=== PATIENT | male | born 1980 | race Caucasian/White ===

== ENCOUNTER 2016-10-20 18:17 | Emergency (ER) | payer MEDICAID ==
[~2016-10-20] VITALS: Ht 165.1 cm; Wt 91.0 kg
[~2016-10-20 18:17] MED LIST: HYDR-3720 PO; IBUP800T25 PO
[2016-10-20 18:18] VITALS: Ht 165.1 cm; Wt 91.0 kg
[2016-10-20] MEDS ORDERED: IBUPROFEN 800 MG TAB PO ONE (19:00)
--- NOTE | 2016-10-20 20:00 | RADRPT ---
PROCEDURE: XR Right Hand CLINICAL INDICATION: Pain in thumb TECHNIQUE: PA, oblique, and lateral radiographs were submitted. COMPARISON: None FINDINGS: Osseous structures: appear well mineralized and intact with no fracture or destructive process iden tified. Joint spaces: It mild degenerative changes seen about the interphalangeal joint of the right thumb. The remaining joint spaces appear normal. Soft tissues: appear unremarkable. IMPRESSION: 1. Mild degenerative change seen about the interphalangeal joint of the right thumb. 2. Otherwise, unremarkable right hand series. Physician Kenny Date Time Electronically viewed and signed by Ayla Machado Physician on 10/20/2016 19:59 /
--- NOTE | 2016-10-20 20:09 | ERD ---
ER Documentation Chief Complaint Date/Time DATE: 10/20/16 TIME: 20:07 Chief Complaint Complains of left hand pain HPI This is a 36-year-old male presents to the emergency room for evaluation of nontraumatic right hand pain. The patient states that he has had hand pain for 3 months and came to the emergency room today for evaluation. He denies numbness or tingling in the right upper extremity, denies any fevers associated with this and denies any swelling. He came to the ER for evaluation of this chronic right hand pain. ROS All systems reviewed and are negative except as per history of present illness. Medications Home Meds Active Scripts Hydrocodone Bit-Acetaminophen* ([place]*) 7.5-325 Tablet, 2 TAB PO Q4H Y for PAIN , #20 TAB Prov:ZAY ALLENSTRAMIROS A. DO 04/06/15 Ibuprofen* (Motrin*) 800 Mg Tab, 800 MG PO Q6H Y for PAIN AND OR ELEVATED TEMP, #30 TAB Prov:ZAY ALLENSTRAMIROS A. DO 04/06/15 Allergies Allergies: Coded Allergies: No Known Allergy (Unverified , 04/06/15) PMhx/Soc Medical and Surgical Hx: pt denies Medical Hx, pt denies Surgical Hx Hx Alcohol Use: No Hx Substance Use: No Hx Tobacco Use: Yes (2CIG/DAY) Smoking Status: Light tobacco smoker Physical Exam Vitals Vital Signs Date Time Temp Pulse Resp B/P Pulse Ox O2 Delivery O2 Flow Rate FiO2 10/20/16 18:18 98.3 75 20 133/80 97 Physical Exam Const: No acute distress Head: Atraumatic Eyes: Normal Conjunctiva ENT: Normal External Ears, Nose and Mouth. Neck: Full range of motion..~ No meningismus. Resp: Clear to auscultation bilaterally Cardio: Regular rate and rhythm, no murmurs Abd: Soft, non tender, non distended. Normal bowel sounds Skin: No petechiae or rashes Back: No midline or flank tenderness Ext: No cyanosis, or edema, no gross abnormalities Neur: Awake and alert Psych: Normal Mood and Affect Results 24 hrs Current Medications Medications (Trade) Dose Ordered Sig/[place] Route PRN Reason Start Time Stop Time Status Last Admin Dose Admin Ibuprofen (Motrin) 800 mg ONCE ONCE PO 10/20/16 19:00 10/20/16 19:01 DC 10/20/16 19:06 Procedures/[facility] X-ray Hand 3V interpreted by me: Scaphoid: [Normal] Bones: [No fracture] Joints: [No dislocation] Foreign body: [None] Splint Assessment: Neurovascularly intact post splint placement with good fit. A right Velcro wrist splint was applied by the tech under my direct supervision. After splint application, the patient was appreciated to have a normal distal neurovascular examination. This 36-year-old male presents to the ER for evaluation of atraumatic right hand pain. When I evaluated him he had no gross abnormalities on my examination. X-ray does not reveal any fracture. He will be placed in a right wrist splint and will be discharged home with a prescription for Motrin at this time with instructions to follow-up with his primary care physician. Departure Diagnosis: Primary Impression: Right hand pain Condition: Stable JUVENAL DRISCOLL DO Oct 20, 2016 20:09
[2016-10-20] MEDS ORDERED: IBUP800T25 PO (20:10)
[2016-10-20 20:20] VITALS: BP 122/77; PULSE 65; RESP 18; TEMP 98.3
== END 2016-10-20 20:25 | disposition home or self-care (01) ==
LOC: FTE 18:17
DX: M79.641 Pain in right hand (principal); F17.210 Nicotine dependence, cigarettes, uncomplicated
CPT/HCPCS: 29125; 73130; Z7502; Z7610

== ENCOUNTER 2018-05-07 15:26 | Emergency (ER) | payer MEDICAID ==
[~2018-05-07] VITALS: Wt 92.4 kg
[~2018-05-07 15:26] MED LIST changes: -IBUP800T25 PO; +IBUP800T48 PO
[2018-05-07 15:32] VITALS: BP 136/82; PULSE 69; RESP 22
[2018-05-07] MEDS ORDERED: IBUP-1542 PO (16:36)
--- NOTE | 2018-05-07 16:41 | ERD ---
ER Documentation Chief Complaint Chief Complaint L thumb w pain, swelling x1mo. limited ROM. +sensation. HPI 37-year-old male presents with left thumb pain and swelling for last month. Den ies any history of trauma. Denies any inciting events. He does use his hands for work. ROS All systems reviewed and are negative except as per history of present illness. Medications Home Meds Active Scripts Ibuprofen* (Motrin*) 600 Mg Tab, 600 MG PO Q6, #20 TAB Prov:OBDULIO FORD MD 05/07/18 Ibuprofen* (Motrin*) 800 Mg Tab, 800 MG PO Q6H PRN for PAIN AND OR ELEVATED TEMP, #30 TAB Prov:JUVENAL DRISCOLL DO 10/20/16 Hydrocodone Bit-Acetaminophen* ([place]*) 7.5-325 Tablet, 2 TAB PO Q4H PRN for PAIN, #20 TAB Prov:LEKKOS,APOSTOLOS A. DO 04/06/15 Ibuprofen* (Motrin*) 800 Mg Tab, 800 MG PO Q6H PRN for PAIN AND OR ELEVATED TEMP, #30 TAB Prov:LEKKOS,APOSTOLOS A. DO 04/06/15 Allergies Allergies: Coded Allergies: No Known Allergy (Unverified , 04/06/15) PMhx/Soc Medical and Surgical Hx: pt denies Medical Hx, pt denies Surgical Hx Hx Alcohol Use: No Hx Substance Use: No Hx Tobacco Use: Yes (2CIG/DAY) Smoking Status: Current every day smoker FmHx Family History: No diabetes, No coronary disease, No other Physical Exam Vitals Vital Signs Date Temp Pulse Resp B/P (MAP) Pulse Ox O2 O2 Flow FiO2 Time Delivery Rate 05/07/18 97.7 69 22 136/82 98 15:32 (100) Physical Exam Const: No acute distress Head: Atraumatic Eyes: Normal Conjunctiva ENT: Normal External Ears, Nose and Mouth. Neck: Full range of motion. No meningismus. Resp: Clear to auscultation bilaterally Cardio: Regular rate and rhythm, no murmurs Abd: Soft, non tender, non distended. Normal bowel sounds Skin: No petechiae or rashes Back: No midline or flank tenderness Ext: No cyanosis, or edema. Palpable popping or catching or symptoms of trigger finger with flexion of the left thumb PIP joint. Mild swelling of the PIP joint. No erythema, warmth, knavel sign. Cap refill is less than 2 second s. Neur: Awake and alert Psych: Normal Mood and Affect Procedures/[facility]M X-ray left thumb 2V Interpreted by me: Bones: No fracture Joints: No dislocation Foreign body: None. Impression-degenerative changes of the left thumb PIP torsten int otherwise no acute findings. Left thumb metal splint. Patient is neurovascular intact after the splint. Patient presents with left thumb pain with signs of trigger finger as well as some degenerative changes on x-ray. There is no evidence of septic arthritis, deficits, ischemia, signs of fracture, dislocation. We discharged home in a splint and recommendations for primary care and orthopedic follow-up. He should return for fevers, redness, new or worsening symptoms. Departure Diagnosis: Primary Impression: Pain of finger Laterality: left Qualified Codes: M79.645 - Pain in left finger(s) Condition: Stable Patient Instructions: Tendonitis Additional Instructions: probablamente tenodnitis o artritis. Va al hong doctor/ specialista para mas evaluacon en el proximo semana. posiblemente necesita autorizado de hong doctor primario para specialista. Regresa para fiebre, o mas o nueva simptomas. OBDULIO FORD MD May 07, 2018 16:41
== END 2018-05-07 17:10 | disposition home or self-care (01) ==
LOC: FTE 15:26
DX: M79.645 Pain in left finger(s) (principal); F17.210 Nicotine dependence, cigarettes, uncomplicated
CPT/HCPCS: 29130; 73140; Z7502